=== PATIENT | female | born 2000 | race Caucasian/White ===

== ENCOUNTER 2022-08-12 07:52 | Day surgery (SDC) | payer OTHER ==
[2022-08-11 12:36] VITALS: BMI 27.4
[2022-08-12] MEDS ORDERED: fentaNYL Citrate/PF 100 MCG/2 ML SYRINGE ONE ×2 (09:03)
[2022-08-12] MEDS ORDERED: Ketamine 50 MG/ML (10ML VIAL) ONE (09:03)
[2022-08-12 09:12] LABS: BHCG - Serum Negative (NEGATIVE); Pregs Control Background? CLEAR/WHITE (CLR/WHITE); Pregs Control Bar Appear? YES (CONTROL BAR)
[2022-08-12] MEDS ORDERED: Ondansetron PF 4 MG/2 ML Vial ONE (09:14)
[2022-08-12] MEDS ORDERED: PROPOFOL 200 MG/20 ML VIAL ONE (09:14)
[2022-08-12] MEDS ORDERED: Dexamethasone 20 MG/5 ML VIAL ONE (09:14)
[2022-08-12] MEDS ORDERED: Fentanyl 100 MCG/2 ML VIAL ONE ×2 (10:15→10:46)
[2022-08-12] MEDS ORDERED: diphenhydrAMINE 50 MG/ML VIAL ONE (10:37)
[2022-08-12] MEDS ORDERED: Hydrocodone-Acetamin 15 ML UDCUP ONE (11:43)
== END 2022-08-12 12:50 | disposition home or self-care (01) ==
LOC: SDC 07:52
PROVIDERS: ATTEND Student in an Organized Health Care Education/Training Program
PROC: 0CTPXZZ Resection of Tonsils, External Approach (ICD-10-PCS; principal; 2022-08-12)
DX: J03.91 Acute recurrent tonsillitis, unspecified (principal); J35.01 Chronic tonsillitis; J35.8 Other chronic diseases of tonsils and adenoids; J35.3 Hypertrophy of tonsils with hypertrophy of adenoids; J45.909 Unspecified asthma, uncomplicated; G47.9 Sleep disorder, unspecified; H61.20 Impacted cerumen, unspecified ear; H93.8X3 Other specified disorders of ear, bilateral; Z20.822 Contact with and (suspected) exposure to COVID-19
CPT/HCPCS: 84702; 84703; 85014; 87811; 88304; J1100; J1200; J2405; J2704; J3010